=== PATIENT | male | born 1955 | race Caucasian/White ===

== ENCOUNTER 2019-06-20 06:09 | Day surgery (SDC) | payer OTHER ==
[~2019-06-20] VITALS: Ht 170.2 cm; Wt 67.4 kg
[~2019-06-20 06:09] MED LIST: NO MEDS
[2019-06-20 07:13] VITALS: Ht 170.2 cm; Wt 67.4 kg
[2019-06-20 07:51] VITALS: BP 118/73; PULSE 48; RESP 18
[2019-06-20] MEDS ORDERED: FENTAnyl 50 MCG/ML VIAL ONE (09:05)
[2019-06-20] MEDS ORDERED: MIDAZOLAM 1 MG/ML 2 ML INJ ONE (09:06)
[2019-06-20 09:20] VITALS: BP 120/79; PULSE 48; RESP 18
== END 2019-06-20 17:51 | disposition home or self-care (01) ==
LOC: GIL 06:09
PROVIDERS: ATTEND Internal Medicine Gastroenterology
DX: Z12.11 Encounter for screening for malignant neoplasm of colon (principal); K64.8 Other hemorrhoids
CPT/HCPCS: 45380; 88305; J2250; J3010; Z7610